=== PATIENT | female | born 1945 | race Caucasian/White ===

== ENCOUNTER → 2017-03-14 | Outpatient (CLI) | payer MEDICARE ==
--- NOTE | 2017-03-14 17:59 | RADIOLOGY REPORT (SQ) ---
EXAM DESCRIPTION: CT CHEST WITHOUT COMPLETED DATE/TIME: 03/14/2017 5:30 pm REASON FOR STUDY: ABNORMAL FINDINGS OF THE LUNG R91.8 OTHER NONSPECIFIC ABNORMAL FINDING OF LUNG FI ELD J47.9 BRONCHIECTASIS, UNCOMPLICATED COMPARISON: None. TECHNIQUE: CT scan performed of the chest without intravenous contrast. Images reviewed with lung, soft tissue and bone windows. Reconstructed coronal and sagittal MPR images reviewed. All images st ored on PACS. All CT scanners at this facility use dose modulation, iterative reconstruction, and/or weight based d osing when appropriate to reduce radiation dose to as low as reasonably achievable (ALARA). [facility]: Dose Right [facility]: CareDose [facility]: Dose Right [facility]: Teradose 4D [facility]: [facility] RADIATION DOSE: 25.22 mGy. LIMITATIONS: No technical limitations. FINDINGS: LUNGS AND PLEURA: There are peripheral emphysematous changes. Bronchiectasis is present i n the upper lobes. There is a 3 or 4 mm nodule in the right upper lobe that is stable. There is no acute pulmonary infiltrate or pleural effusion. HILAR AND MEDIASTINAL STRUCTURES: Numerous mediastinal nodes are present. These were present on the prior study as well. HEART AND VASCULAR STRUCTURES: Aortic and coronary atherosclerosis. No pericardial effusion. No ane urysm or dissection UPPER ABDOMEN: Numerous granulomatous calcifications are present in the spleen. THYROID AND OTHER SOFT TISSUES: No masses. No adenopathy. BONES: No significant finding. HARDWARE: None in the chest. OTHER: No other significant findings. IMPRESSION: There are extensive chronic changes including peripheral emphysema and bronchiectasis. There is no acute pathology seen in the chest. Findings as described. TECHNICAL DOCUMENTATION: JOB ID: [id number] Quality ID # [id number]: Final reports with documentation of one or more dose reduction techniques (e.g., Au tomated exposure control, adjustment of the mA and/or kV according to patient size, use of iterative reconstruction technique) 2010 [employer]- All Rights Reserved
== END ==
LOC: RAD 16:57
PROVIDERS: ATTEND Internal Medicine Critical Care Medicine
DX: J47.9 Bronchiectasis, uncomplicated (principal); J45.909 Unspecified asthma, uncomplicated; R91.8 Other nonspecific abnormal finding of lung field; D86.9 Sarcoidosis, unspecified; B49 Unspecified mycosis; R09.02 Hypoxemia; Z80.9 Family history of malignant neoplasm, unspecified; G47.33 Obstructive sleep apnea (adult) (pediatric); Z87.891 Personal history of nicotine dependence
CPT/HCPCS: 71250

== ENCOUNTER → 2018-05-22 | Outpatient (CLI) | payer MEDICARE ==
--- NOTE | 2018-05-22 13:35 | RADIOLOGY REPORT (SQ) ---
EXAM DESCRIPTION: CT CHEST WITHOUT COMPLETED DATE/TIME: 05/22/2018 1:19 pm REASON FOR STUDY: R91.8 OTHER NONSPECIFIC ABNORMAL FINDING OF LUNG FIELD R91.8 OTHER NONSPECIFIC AB NORMAL FINDING OF LUNG FIELD COMPARISON: 10/08/2014, 03/14/2017 TECHNIQUE: CT scan performed of the chest without intravenous contrast. Images reviewed with lung, soft tissue and bone windows. Reconstructed coronal and sagittal MPR images reviewed. All images st ored on PACS. All CT scanners at this facility use dose modulation, iterative reconstruction, and/or weight based d osing when appropriate to reduce radiation dose to as low as reasonably achievable (ALARA). [facility]: Dose Right [facility]: CareDose [facility]: Dose Right [facility]: Teradose 4D [facility]: [facility] RADIATION DOSE: CT Rad equipment meets quality standard of care and radiation dose reduction techniq ues were employed. CTDIvol: 17.2 mGy. DLP: 651 mGy-cm. mGy. LIMITATIONS: No technical limitations. FINDINGS: LUNGS AND PLEURA: Chronic parenchymal changes in both lungs, more extensive in the left ap ex. Stable diffuse bronchiectasis, more extensive in the left upper lobe. HILAR AND MEDIASTINAL STRUCTURES: Chronic lymphadenopathy without significant change. HEART AND VASCULAR STRUCTURES: No aneurysm. No pericardial effusion. UPPER ABDOMEN: Old granulomatous disease in the spleen. Limited exam. THYROID AND OTHER SOFT TISSUES: Stable left thyroid nodule. BONES: No acute findings HARDWARE: None in the chest. OTHER: No other significant findings. IMPRESSION: Extensive chronic emphysema with scarring and bronchiectasis. Chronic lymphadenopathy. No significant change. TECHNICAL DOCUMENTATION: JOB ID: [id number] Quality ID # [id number]: Final reports with documentation of one or more dose reduction techniques (e.g., Au tomated exposure control, adjustment of the mA and/or kV according to patient size, use of iterative reconstruction technique) 2010 [employer]- All Rights Reserved Reading location - IP/workstation name: [email or web address]
== END ==
LOC: RAD 12:58
PROVIDERS: ATTEND Internal Medicine Critical Care Medicine
DX: R91.8 Other nonspecific abnormal finding of lung field (principal)
CPT/HCPCS: 71250